=== PATIENT | male | born 1970 | race Caucasian/White ===

== ENCOUNTER 2019-12-14 03:24 | Emergency (ER) | payer BC ==
[~2019-12-14] VITALS: Ht 182.9 cm; Wt 122.5 kg
[2019-12-14 03:30] VITALS: BP_SYST 178
--- NOTE | 2019-12-14 04:40 | NUR ---
Patient to ER bed 6 to gown for evaluation. Side rails up. Report given to Nancy AVALOS.
--- NOTE | 2019-12-14 04:45 | NUR ---
Urine sent to lab for UA.
[2019-12-14 04:50] LABS: BILIRUBIN,URINE NEGATIVE (NEGATIVE); BLOOD, URINE 2+ (NEGATIVE); CLARITY/URINE CLEAR (CLEAR); COLOR,URINE ORANGE (YELLOW); GLUCOSE,URINE NEGATIVE (NEGATIVE); KETONES,URINE NEGATIVE (NEGATIVE); LEUKOCYTE ESTERASE ,URINE 1+ (NEGATIVE); NITRITE, URINE NEGATIVE (NEGATIVE); PH,URINE 5.5 (5.0-8.0); PROTEIN URINE 1+ (NEGATIVE); UROBILINOGEN,URINE 0.2 (0.2-1.0)
--- NOTE | 2019-12-14 04:50 | NUR ---
Pt presents to ER with c/o decreased urine elimination. Pt states cystoscopy Monday. Pt states since procedure, urine has decreased. Pt states urine color has gotten "more yellow." Pt states lower abdominal pain that started 2 days ago. Pt states pain 4/10. Will continue to monitor.
[2019-12-14 04:56] LABS: WBC,URINE 50-80 /HPF (0-3)
[2019-12-14 04:57] LABS: BACTERIA,URINE MODERATE /HPF (None Seen)
--- NOTE | 2019-12-14 06:16 | NUR ---
Per MD orders, bladder scan performed on pt. 151 mL scanned. Results reported to MD Martinez. Will continue to monitor.
[2019-12-14] MEDS ORDERED: MORPHINE 4 MG/ML INJ. SYRINGE IM ONE (06:30)
[2019-12-14 06:31] LABS: BASOPHILS # (AUTO) 0.1 K/uL (0.0-0.2); BASOPHILS % (AUTO) 0.5 % (0.0-2.0); EOSINOPHILS % (AUTO) 0.1 % (0.0-4.0); HEMATOCRIT 39.8 % (36-54); HEMOGLOBIN 13.4 g/dL (14.0-18.0); LYMPHOCYTES % (AUTO) 7.6 % (20.5-51.5); MEAN CORPUSCULAR HEMOGLOBIN 30 pg (27-31); MEAN CORPUSCULAR HGB CONC 34 % (32-36); MEAN CORPUSCULAR VOLUME 89 fL (79.0-98.0); MONOCYTES # (AUTO) 1.3 K/uL (0.0-1.0); MONOCYTES % (AUTO) 9.3 % (1.7-9.3); NEUTROPHILS # (AUTO) 11.2 K/uL (1.8-7.7); NEUTROPHILS % (AUTO) 82.5 % (40.0-70.0); PLATELET COUNT (AUTO) 242 K/uL (130-430); RED BLOOD CELL COUNT(AUTO) 4.49 MIL/uL (4.2-6.2); RED CELL DISTRIBUTION WIDTH 14.1 % (9.0-15.0); WHITE BLOOD COUNT (AUTO) 13.6 K/uL (4.8-10.8)
[2019-12-14 06:45] LABS: CALCIUM 8.9 mg/dL (8.4-11.0); CREATININE 1.07 mg/dL (0.55-1.30); POTASSIUM 3.7 mmol/L (3.5-5.1)
--- NOTE | 2019-12-14 07:06 | NUR ---
Report received from BAILEY Valentin for continuation of care.
--- NOTE | 2019-12-14 07:23 | NUR ---
Patient is awake, alert, and oriented x4. Patient reports having a cystoscopy on Monday, urinary problems started on Monday. Patient he reports that he is able to urinate, but only dribbles a small amount at the time. He is worried about an infection. Patient denies any pain.
[2019-12-14 08:30] VITALS: BP_SYST 162
--- NOTE | 2019-12-14 08:30 | NUR ---
Patient given written and verbal discharge instructions and verbalizes understanding. ER MD discussed with patient the results and treatment provided. Patient in stable condition. ID arm band removed. IV catheter removed intact and dressing applied, no active bleeding. Rx of macrobid given. Patient educated on pain management and to follow up with PMD. Pain Scale 0/10. Opportunity for questions provided and answered. Medication side effect fact sheet provided.
== END 2019-12-14 08:30 | disposition home or self-care (01) ==
LOC: SED 03:24
DX: N39.0 Urinary tract infection, site not specified (principal)
CPT/HCPCS: 36415; 80048; 81000-TC; 85025; 87086; 87186-TC; 99284